=== PATIENT | female | born 1990 | race Caucasian/White ===

== ENCOUNTER 2018-05-23 09:23 | Emergency (ER) | payer SELFPAY ==
--- NOTE | 2018-05-23 10:22 | RAD REPORT ---
EXAM DESCRIPTION: Charlotte Lam (2 Views)05/23/2018 10:16 am CLINICAL HISTORY: Cough COMPARISON: None FINDINGS: The lungs appear clear of acute infiltrate. The heart is normal size IMPRESSION: No acute abnormalities displayed
--- NOTE | 2018-05-23 10:37 | ER ---
Nurse's Notes [facility] Name: Chiara Ryan Age: 28 yrs Sex: Female : 1990 Arrival Date: 05/23/2018 Time: 09:25 Bed Treatment Private MD: Unknown, Unknown Diagnosis: Cough Presentation: 05/23 09:49 Presenting complaint: Patient states: cough X 1 month, now is having a hard time iw breathing, denies fever. Transition of care: patient was not received from another setting of care. Onset of symptoms was April 2018. Risk Assessment: Do you want to hurt yourself or someone else? Patient reports no desire to harm self or others. Initial Sepsis Screen: Does the patient meet any 2 criteria? No. Patient's initial sepsis screen is negative. Does the patient have a suspected source of infection? No. Patient's initial sepsis screen is negative. Care prior to arrival: None. 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 - Social history:: Smoking status: Patient uses tobacco products, smokes one-half pack cigarettes per day. - Ebola Screening: : Patient negative for fever greater than or equal to 101.5 degrees Fahrenheit, and additional compatible Ebola Virus Disease symptoms Patient denies exposure to infectious person Patient denies travel to an Ebola-affected area in the 21 days before illness onset No symptoms or risks identified at this time. - Family history:: not pertinent. - Hospitalizations: : No recent hospitalization is reported. Screenin:25 Abuse screen: Denies threats or abuse. Denies injuries from another. Nutritional iw screening: No deficits noted. Tuberculosis screening: No symptoms or risk factors identified. Fall Risk None identified. Assessment: 10:24 General: Appears in no apparent distress. Behavior is calm, cooperative. Pain: iw Complains of pain in chest. Neuro: Level of Consciousness is awake, alert, obeys commands, Oriented to person, place, time, situation, Moves all extremities. Full function. Cardiovascular: Patient's skin is warm and dry. Respiratory: Respiratory effort is even, unlabored, Respiratory pattern is regular. Respiratory: Reports shortness of breath on exertion cough that is hacking, persistent pain with cough Breath sounds are clear bilaterally. GI: No signs and/or symptoms were reported involving the gastrointestinal system. Derm: Skin is intact, is healthy with good turgor. Musculoskeletal: Range of motion: intact in all extremities. Vital Signs: 09:51 BP 124 / 94; Pulse 97; Resp 18 S; Temp 97.4; Pulse Ox 99% on R/A; Weight 111.13 kg; iw Height 5 ft. 4 in. (162.56 cm); Pain 9/10; 09:51 Body Mass Index 42.05 (111.13 kg, 162.56 cm) iw ED Course: 09:25 Patient arrived in ED. ag5 09:25 Unknown, Unknown is Private Physician. ag5 09:50 Triage completed. iw 09:51 Arm band placed on. iw 09:53 Tali Lopez, RN is Primary Nurse. iw 09:54 Alistair Cassidy MD is Attending Physician. rn 10:00 Patient has correct armband on for positive identification. iw 10:15 XRAY Chest Pa And Lat (2 Views) In Process Unspecified. EDMS 10:25 No provider procedures requiring assistance completed. Patient did not have IV access iw during this emergency room visit. Administered Medications: No medications were administered Outcome: 10:35 Discharge ordered by . rn 10:42 Discharged to home ambulatory. iw 10:42 Condition: good 10:42 Discharge instructions given to patient, Instructed on discharge instructions, follow up and referral plans. Demonstrated understanding of instructions, follow-up care. 10:43 Patient left the ED. iw Signatures: Dispatcher [employer] EDMS Tali Lopez RN RN Alistair Cassdiy MD MD rn Gaskin, Ajare ag5
--- NOTE | 2018-05-23 10:37 | EDPHYS ---
Physician Documentation [facility] Name: Chiara Ryan Age: 28 yrs Sex: Female : 1990 Arrival Date: 05/23/2018 Time: 09:25 Bed Treatment Private MD: Unknown, Unknown ED Physician Alistair Cassidy HPI: 05/23 10:01 This 28 yrs old Female presents to ER via Ambulatory with complaints of rn BURNING COUGH. 10:01 The patient or guardian reports cough. Onset: The symptoms/episode began/occurred 1 rn month(s) ago. Severity of symptoms: At their worst the symptoms were mild, in the emergency department the symptoms are unchanged. Modifying factors: The symptoms are alleviated by nothing, the symptoms are aggravated by nothing. The patient has experienced similar episodes in the past. Reports new to the area, + cough for 1 month, + smoker, + history of recurrent "bronchitis". NO hemoptysis. . 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 - Social history:: Smoking status: Patient uses tobacco products, smokes one-half pack cigarettes per day. - Ebola Screening: : Patient negative for fever greater than or equal to 101.5 degrees Fahrenheit, and additional compatible Ebola Virus Disease symptoms Patient denies exposure to infectious person Patient denies travel to an Ebola-affected area in the 21 days before illness onset No symptoms or risks identified at this time. - Family history:: not pertinent. - Hospitalizations: : No recent hospitalization is reported. ROS: 10:01 Constitutional: Negative for fever, chills, and weight loss, Eyes: Negative for injury, rn pain, redness, and discharge, Cardiovascular: Negative for chest pain, palpitations, and edema, Respiratory: + cough Abdomen/GI: Negative for abdominal pain, nausea, vomiting, diarrhea, and constipation, Back: Negative for injury and pain, MS/Extremity: Negative for injury and deformity, Skin: Negative for injury, rash, and discoloration, Neuro: Negative for headache, weakness, numbness, tingling, and seizure. Exam: 10:01 Constitutional: This is a well developed, well nourished patient who is awake, alert, rn and in no acute distress. ENT: MMM, no stridor Respiratory: Lungs have equal breath sounds bilaterally, clear to auscultation. No increased work of breathing, no retractions or nasal flaring. Skin: Warm, dry with normal turgor. Normal color with no rashes, no lesions, and no evidence of cellulitis. MS/ Extremity: Pulses equal, no cyanosis. Neurovascular intact. Full, normal range of motion. Equal circumference. Neuro: Awake and alert, GCS 15, oriented to person, place, time, and situation. Cranial nerves II-XII grossly intact. Motor strength 5/5 in all extremities. Sensory grossly intact. Cerebellar exam normal. Normal gait. Vital Signs: 09:51 BP 124 / 94; Pulse 97; Resp 18 S; Temp 97.4; Pulse Ox 99% on R/A; Weight 111.13 kg; iw Height 5 ft. 4 in. (162.56 cm); Pain 9/10; 09:51 Body Mass Index 42.05 (111.13 kg, 162.56 cm) iw MDM: 09:54 Patient medically screened. rn 10:34 Differential Diagnosis: Bronchitis Upper Respiratory Infection Viral Syndrome rn Pneumonia. Data reviewed: vital signs, nurses notes, radiologic studies, plain films, and as a result, I will discharge patient. Counseling: I had a detailed discussion with the patient and/or guardian regarding: the historical points, exam findings, and any diagnostic results supporting the discharge/admit diagnosis, radiology results, the need for outpatient follow up, to return to the emergency department if symptoms worsen or persist or if there are any questions or concerns that arise at home. Counseling: I had a detailed discussion with the patient and/or guardian regarding: smoking cessation. Special discussion: I discussed with the patient/guardian in detail that at this point there is no indication for admission to the hospital. It is understood, however, that if the symptoms persist or worsen the patient needs to return immediately for re-evaluation. 05/23 09:59 Order name: XRAY Chest Pa And Lat (2 Views); Complete Time: 10:34 rn Administered Medications: No medications were administered Disposition: 05/23/18 10:35 Discharged to Home. Impression: Cough. - Condition is Stable. - Discharge Instructions: Smoking Hazards, Cough, Adult. - Work release form, Medication Reconciliation Form, Thank You Letter, Antibiotic Education, Prescription Opioid Use form. - Follow up: Private Physician; When: As needed; Reason: Recheck today's complaints, Re-evaluation by your physician. - Problem is new. - Symptoms have improved. Signatures: Dispatcher [employer] Tali Martinez RN RN iw Alistair Cassidy MD MD rn ed: (The following items were deleted from the chart) 10:43 10:35 05/23/2018 10:35 Discharged to Home. Impression: Cough. Condition is Stable. iw Forms are Medication Reconciliation Form, Thank You Letter, Antibiotic Education, Prescription Opioid Use. Follow up: Private Physician; When: As needed; Reason: Recheck today's complaints, Re-evaluation by your physician. Problem is new. Symptoms have improved. rn
== END 2018-05-23 10:43 | disposition home or self-care (01) ==
LOC: ER 09:23
DX: R05 Cough (principal); F17.210 Nicotine dependence, cigarettes, uncomplicated; E11.9 Type 2 diabetes mellitus without complications; Z88.0 Allergy status to penicillin; Z88.5 Allergy status to narcotic agent; Z88.8 Allergy status to other drugs, medicaments and biological substances
CPT/HCPCS: 71046; 99283